=== PATIENT | male | born 1990 | race Caucasian/White ===

== ENCOUNTER 2020-01-28 08:18 | Emergency (ER) | payer OTHER ==
[2020-01-28 08:31] VITALS: RESP 16
--- NOTE | 2020-01-28 08:42 | ED ---
General Adult HPI <Mralon Moura - Last Filed: 01/28/20 16:45> - General Source: patient, RN notes reviewed, old records reviewed Mode of arrival: EMS Limitations: no limitations <Mita Hebert - Last Filed: 01/29/20 09:22> - General Chief complaint: Psychiatric Symptoms Stated complaint: psych eval Time Seen by Provider: 01/28/20 08:22 - History of Present Illness Initial comments: 29-year-old male presents emergency department today for concerns for suicidal statement. Patient reports he is having a rough time and has confided to his boss that he "wanted to blow his brains out". Patient states that he has had a long history of depression but he denies any active suicidal plan. 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 Patient states that he does not see a counselor. (Mita Hebert) - Related Data Home Medications Medication Instructions Recorded Confirmed No Known Home Medications 01/28/20 01/28/20 Allergies Allergy/AdvReac Type Severity Reaction Status Date / Time No Known Allergies Allergy Verified 01/28/20 09:16 Review of Systems ROS Other: All systems not noted in ROS Statement are negative. <Marlon Moura - Last Filed: 01/28/20 16:45> ROS Other: All systems not noted in ROS Statement are negative. <Mita Hebert - Last Filed: 01/29/20 09:22> ROS Statement: Those systems with pertinent positive or pertinent negative responses have been documented in the HPI. Past Medical History Past Medical History: No Reported History History of Any Multi-Drug Resistant Organisms: None Reported Past Surgical History: No Surgical Hx Reported Past Psychological History: No Psychological Hx Reported Smoking Status: Current every day smoker Past Alcohol Use History: Abuse, Daily, Heavy Past Drug Use History: None Reported <Mita Hebert - Last Filed: 01/29/20 09:22> General Exam Limitations: no limitations General appearance: alert, in no apparent distress Head exam: Present: atraumatic, normocephalic, normal inspection Eye exam: Present: normal appearance ENT exam: Present: normal exam, mucous membranes moist Neck exam: Present: normal inspection. Absent: tenderness, meningismus, lymphadenopathy Respiratory exam: Present: normal lung sounds bilaterally Cardiovascular Exam: Present: regular rate, normal rhythm, normal heart sounds. Absent: systolic murmur, diastolic murmur, rubs, gallop, clicks GI/Abdominal exam: Present: soft, normal bowel sounds. Absent: distended, tenderness, guarding, rebound, rigid Extremities exam: Present: normal inspection, full ROM, normal capillary refill. Absent: tenderness, pedal edema, joint swelling, calf tenderness Back exam: Present: normal inspection Neurological exam: Present: alert, oriented X3, CN II-XII intact Psychiatric exam: Present: normal mood, depressed, other (Cooperative. He has suicidal statement but denies any active suicidal ideation.). Absent: normal affect Skin exam: Present: warm, dry, intact, normal color. Absent: rash <Mita Hebert - Last Filed: 01/29/20 09:22> - General Exam Comments Initial Comments: 29-year-old male. Alert and oriented. (Mita Hebert) Course <Mita Hebert - Last Filed: 01/29/20 09:22> Vital Signs 01/28/20 01/28/20 08:23 16:56 Temperature 98.2 F 98 F Pulse Rate 110 H 89 Respiratory 16 16 Rate Blood Pressure 135/100 138/89 O2 Sat by Pulse 97 97 Oximetry - Reevaluation(s) Reevaluation #1: 01/28/20 14:42 Patient is sent to Dr. Moura at 243pm. (Mita Hebert) Medical Decision Making <Marlon Moura - Last Filed: 01/28/20 16:45> <Mita Hebert - Last Filed: 01/29/20 09:22> - Medical Decision Making EPS evaluated the patient and determined the patient was safe to go home. A she was given a safety plan. (Marlon Moura) 29 year male presents to ED for suicidal statement. Pt arrived intoxicated. Pt has been cooperative in Ed. Pt will be evaluated by EPS/ Mobile crisis. (Mita Hebert) - Lab Data Lab Results 01/28/20 Range/Units 08:46 Urine Opiates Screen Not Detected (NotDetected) Ur Oxycodone Screen Not Detected (NotDetected) Urine Methadone Screen Not Detected (NotDetected) Ur Propoxyphene Screen Not Detected (NotDetected) Ur Barbiturates Screen Not Detected (NotDetected) U Tricyclic Antidepress Not Detected (NotDetected) Ur Phencyclidine Scrn Not Detected (NotDetected) Ur Amphetamines Screen Not Detected (NotDetected) U Methamphetamines Scrn Not Detected (NotDetected) U Benzodiazepines Scrn Not Detected (NotDetected) Urine Cocaine Screen Not Detected (NotDetected) U Marijuana (THC) Screen Not Detected (NotDetected) Disposition Time of Disposition: 16:46 <Marlon Moura - Last Filed: 01/28/20 16:45> Is patient prescribed a controlled substance at d/c from ED?: No <Mita Hebert - Last Filed: 01/29/20 09:22> Clinical Impression: Alcohol intoxication, Situational depression Disposition: HOME SELF-CARE Condition: Good Instructions (If sedation given, give patient instructions): Abuse of Alcohol (ED) Referrals: None,Stated [Primary Care Provider] - 1-2 days
[2020-01-28 09:15] LABS: Amphetamine Screen,Urine Not Detected (NotDetected); Barbiturate Screen,Urine Not Detected (NotDetected); Benzodiazepines Screen,Urine Not Detected (NotDetected); Cocaine Screen,Urine Not Detected (NotDetected); Methadone Screen, Urine Not Detected (NotDetected); Opiate Screen,Urine Not Detected (NotDetected); Oxycodone Screen, Urine Not Detected (NotDetected); Phencyclidine Screen,Urine Not Detected (NotDetected); Tricyclic Antidepressant,Urine Not Detected (NotDetected); Urn Cannabinoid Scrn Not Detected (NotDetected)
[2020-01-28 16:57] VITALS: BP 138/89; PULSE 89; TEMP 98
== END 2020-01-28 16:56 | disposition home or self-care (01) ==
LOC: EC 08:18
DX: F43.21 Adjustment disorder with depressed mood (principal); F10.129 Alcohol abuse with intoxication, unspecified; R45.851 Suicidal ideations; F17.200 Nicotine dependence, unspecified, uncomplicated
CPT/HCPCS: 80306; 82075; 99285